=== PATIENT | male | born 1955 | race Two or more races ===

== ENCOUNTER 2019-12-04 13:35 | Outpatient (CLI) | payer OTHER | END 2019-12-04 13:43 | disposition home or self-care (01) | LOC: TOM 13:35 | PROVIDERS: ATTEND Urology | DX: N20.1 Calculus of ureter (principal) ==

== ENCOUNTER 2020-06-15 12:49 | Emergency (ER) | payer OTHER ==
[~2020-06-15] VITALS: Ht 172.7 cm; Wt 82.6 kg
[2020-06-15] MEDS ORDERED: COZAAR100 MG PO (13:01)
[2020-06-15] MEDS ORDERED: TOPROL XL100 M1 PO (13:01)
[2020-06-15] MEDS ORDERED: NORVASC2.5 M1 PO (13:01)
== END 2020-06-15 17:13 | disposition home or self-care (01) ==
LOC: ER 12:49
DX: J22 Unspecified acute lower respiratory infection (principal); Z03.818 Encounter for observation for suspected exposure to other biological agents ruled out

== ENCOUNTER → 2021-08-10 07:59 | Outpatient (CLI) | payer OTHER ==
[~2021-08-10 07:59] MED LIST: COZAAR100 MG PO; NORVASC2.5 M1 PO; TOPROL XL100 M1 PO
== END | disposition home or self-care (01) ==
LOC: NUCLEAR 07:59
PROVIDERS: ATTEND Internal Medicine Infectious Disease
DX: K82.9 Disease of gallbladder, unspecified (principal)
CPT/HCPCS: 78227; A9520

== ENCOUNTER 2024-06-22 10:14 | Emergency (ER) | payer OTHER ==
[~2024-06-22] VITALS: Ht 172.7 cm; Wt 80.7 kg
[2024-06-22] MEDS ORDERED: BUSPIRONE HCL5 MG PO (10:42)
[2024-06-22] MEDS ORDERED: LOSARTAN-HCTZ1 EAC2 PO (10:42)
[2024-06-22] MEDS ORDERED: CLONAZEPAM1 MG PO (10:43)
[2024-06-22] MEDS ORDERED: FENOFIBRATE50 MG (10:43)
[2024-06-22] MEDS ORDERED: BIKTARVY 50-201 EACH PO (10:43)
[2024-06-22] MEDS ORDERED: GLIMEPIRIDE1 M1 PO (10:43)
[2024-06-22] MEDS ORDERED: [UNRECOGNIZED DRUG - OTHER] (10:44)
[2024-06-22 11:58] LABS: HEMATOCRIT 39.5 % (39.0-48.0); HEMOGLOBIN 13.4 g/dL (13-16.00); MEAN CELL VOLUME 88.2 fL (80.0-100.00); MEAN CORPUSCULAR HEMOGLOBIN 29.9 pg (27.00-32.0); MEAN CORPUSCULAR HGB CONC 33.9 g/dl (32.0-36.0); PLATELET COUNT 240 K/uL (150-450); RED BLOOD COUNT 4.47 M/uL (4.00-6.00); RED CELL DISTRIBUTION WIDTH 16.1 % (11.5-14.5)
== END 2024-06-22 12:38 | disposition home or self-care (01) ==
LOC: ER 10:16
PROVIDERS: General Practice
DX: J06.9 Acute upper respiratory infection, unspecified (principal); R05.9 Cough, unspecified; Z20.822 Contact with and (suspected) exposure to COVID-19; Z88.8 Allergy status to other drugs, medicaments and biological substances

== ENCOUNTER 2025-02-01 13:11 | Emergency (ER) | payer OTHER ==
[~2025-02-01] VITALS: Ht 175.3 cm; Wt 82.6 kg
[~2025-02-01 13:11] MED LIST changes: +BIKTARVY 50-201 EACH PO; +BUSPIRONE HCL5 MG PO; +CLONAZEPAM1 MG PO; +FENOFIBRATE50 MG; +GLIMEPIRIDE1 M1 PO; +LOSARTAN-HCTZ1 EAC2 PO; +[UNRECOGNIZED DRUG - OTHER]
[2025-02-01] MEDS ORDERED: LEVOTHYROXINE25 MCG PO (13:34)
[2025-02-01] MEDS ORDERED: GLIMEPIRIDE2 MG (13:34)
[2025-02-01] MEDS ORDERED: ACETAMINOPHEN 500 MG GEL..CAP PO ONE (15:15)
[2025-02-01] MEDS ORDERED: ACETAMINOPHEN500 M1 PO (18:30)
== END 2025-02-01 20:27 | disposition home or self-care (01) ==
LOC: ER 13:11
DX: S00.83XA Contusion of other part of head, initial encounter (principal); W18.39XA Other fall on same level, initial encounter; Y93.89 Activity, other specified; Y92.488 Other paved roadways as the place of occurrence of the external cause; M25.512 Pain in left shoulder; M25.511 Pain in right shoulder; Z91.013 Allergy to seafood; E03.8 Other specified hypothyroidism; I10 Essential (primary) hypertension; E11.9 Type 2 diabetes mellitus without complications; Z79.84 Long term (current) use of oral hypoglycemic drugs